=== PATIENT | female | born 1955 | race Hispanic/Latino ===

== ENCOUNTER 2020-04-09 08:09 | Emergency (ER) | payer OTHER ==
[2020-04-09 08:43] LABS: Absolute Lymphocytes (CBC) 1.8 K/uL (0.7-4.9); Basophils % 0.6 % (0-1.3); Hematocrit 37.2 % (36.0-45.0); Lymphocytes % 16.4 % (15.3-44.8); MPV 7.5 fL (7.6-11.3); RBC Red Blood Cell Count 4.13 M/uL (3.86-4.86)
[2020-04-09] MEDS ORDERED: NA CHLORIDE 0.9% 0 ML ONE (08:50)
[2020-04-09] MEDS ORDERED: MECLIZINE HCL 12.5 MG TAB ONE (08:50)
[2020-04-09] MEDS ORDERED: NA CHLORIDE 0.9% 500 ML ONE (08:52)
[2020-04-09 09:04] LABS: Bicarbonate 28 mmol/L (21-32); Glucose Level 102 mg/dL (74-106); Potassium 3.9 mmol/L (3.5-5.1); Sodium Level 138 mmol/L (136-145)
[2020-04-09 09:05] LABS: BUN Blood Urea Nitrogen 24 mg/dL (7-18); Troponin (Emerg Dept Use Only) < 0.02 ng/mL (0.0-0.045)
--- NOTE | 2020-04-09 09:56 | RAD REPORT ---
EXAM DESCRIPTION: CT - Head Brain Wo Cont - 04/09/2020 9:38 am CLINICAL HISTORY: DIZZINESS COMPARISON: Head angio dated 04/09/2020 TECHNIQUE: Axial 5 mm thick images of the head were obtained without IV contrast. All CT scans are performed using dose optimization technique as appropriate and may include automated exposure control or mA/KV adjustment according to patient size. FINDINGS: No intracranial hemorrhage, mass, edema or shift of mid-line structures. No cortical edema or sulcal effacement. Mild atrophy changes are present. Ventricles are in proportion to volume loss. No abnormal extra-axial fluid collections. Chronic ischemic changes are seen in the cerebral white m atter. Mastoid air cells and visualized portions of the paranasal sinuses are clear. No acute bony findings. IMPRESSION: Atrophy and chronic ischemic changes are present. No hemorrhage or acute cortical infarc tion identifiable.
--- NOTE | 2020-04-09 09:58 | RAD REPORT ---
EXAM DESCRIPTION: CT - Head angio - 04/09/2020 9:39 am CLINICAL HISTORY: DIZZINESS TECHNIQUE: During dynamic enhancement using nonionic IV contrast, axial 1 millimeter thick images of the head were obtained. Sagittal and axial reconstruction images were generated using MIP technique and reviewed. All CT scans are performed using dose optimization technique as appropriate and may include automated exposure control or mA/KV adjustment according to patient size. COMPARISON: CT head same date FINDINGS: No aneurysm or vascular malformation identified. Major venous sinuses are patent. No stenosis, named branch occlusion, vasculitis or other significant vascular finding identifiable. IMPRESSION: Negative CT angio head examination for acute or significant finding.
--- NOTE | 2020-04-09 10:00 | RAD REPORT ---
EXAM DESCRIPTION: CT - Neck Angio - 04/09/2020 9:39 am CLINICAL HISTORY: dizziness TECHNIQUE: During dynamic enhancement using nonionic IV contrast, axial 2 mm thick images of the nec k were obtained. Sagittal and axial reconstruction images were generated using MIP technique and revi ewed. All CT scans are performed using dose optimization technique as appropriate and may include automated exposure control or mA/KV adjustment according to patient size. COMPARISON: CT head same date, CT angio head same date FINDINGS: No aneurysm or vascular malformation identified. No carotid or vertebral dissection. No aortic arch or great vessel origin abnormality seen. Vertebral artery origins unremarkable as well . No vasculitis changes. Atherosclerotic calcifications are present in the bilateral bulb and proxima l ICA regions. Luminal narrowing does not exceed 20%. No dissection or intimal flap. No focal abnorma lity of either vertebral artery. Basilar artery is normal. IMPRESSION: Bilateral carotid bulb and proximal ICA atherosclerotic calcifications with stenosis no t exceeding 20%. No dissection or acute cervical carotid or vertebral finding.
--- NOTE | 2020-04-09 10:14 | EDPHYS ---
Physician Documentation [facility] Name: Syeda Loredo Age: 64 yrs Sex: Female : 1955 Arrival Date: 04/09/2020 Time: 08:11 Bed 2 Private MD: Megan Matthewsh ED Physician Samuel Dunaway HPI: 04/09 10:01 This 64 yrs old Female presents to ER via Ambulatory with complaints of rn Dizziness. 10:01 The patient complains of pain to the top of head. The patient describes the headache as rn aching, intermittent. Onset: The symptoms/episode began/occurred 1 week(s) ago. The patient presents with dizziness, lightheadedness, feeling off balance. Onset: The symptoms/episode began/occurred 1 week(s) ago. Modifying factors: The symptoms are alleviated by. 10:02 Severity of symptoms: At their worst the symptoms were mild in the emergency department rn the symptoms have improved. The patient has not experienced similar symptoms in the past. Reports headache and dizziness for 1 week. Reports put on thyroid and cholesterol medication a few weeks ago, not sure if medication problem. + dizziness that is made worse with movement and change in position, when began 1 week ago, felt unsteady with difficulty walking, now slowly improving but not gone. No hx of CVA. No other neurological complaint. NO vision or speech changes. . Historical: - Allergies: 08:22 No Known Allergies; iw - Home Meds: 08:22 atorvastatin 40 mg oral tab 1 tab once daily [Active]; levothyroxine 50 mcg tab 1 tab iw once daily [Active]; lisinopril-hydrochlorothiazide 20-25 mg oral tab 1 tab once daily [Active]; - PMHx: 08:22 Hypertension; Hypothyroidism; Hyperlipidemia; iw - PSHx: 08:22 None; iw - Immunization history:: Adult Immunizations. - Family history:: not pertinent. - Social history:: Smoking status: Patient denies any tobacco usage or history of. - Hospitalizations: : No recent hospitalization is reported. ROS: 10:02 Constitutional: Negative for fever, chills, and weight loss, Eyes: Negative for injury, rn pain, redness, and discharge, Neck: Negative for injury, pain, and swelling, Cardiovascular: Negative for chest pain, palpitations, and edema, Respiratory: Negative for shortness of breath, cough, wheezing, and pleuritic chest pain, Abdomen/GI: Negative for abdominal pain, nausea, vomiting, diarrhea, and constipation, MS/Extremity: Negative for injury and deformity, Skin: Negative for injury, rash, and discoloration, Neuro: Negative for weakness, numbness, tingling, and seizure. Exam: 10:02 Constitutional: This is a well developed, well nourished patient who is awake, alert, rn and in no acute distress. Head/Face: Normocephalic, atraumatic. Eyes: Pupils equal round and reactive to light, extra-ocular motions intact. Lids and lashes normal. Conjunctiva and sclera are non-icteric and not injected. Cornea within normal limits. Periorbital areas with no swelling, redness, or edema. Cardiovascular: Regular rate and rhythm with a normal S1 and S2. No gallops, murmurs, or rubs. Normal PMI, no JVD. No pulse deficits. Respiratory: Lungs have equal breath sounds bilaterally, clear to auscultation and percussion. No rales, rhonchi or wheezes noted. No increased work of breathing, no retractions or nasal flaring. Abdomen/GI: Soft, non-tender, with normal bowel sounds. No distension or tympany. No guarding or rebound. No evidence of tenderness throughout. Skin: Warm, dry with normal turgor. Normal color with no rashes, no lesions, and no evidence of cellulitis. MS/ Extremity: Pulses equal, no cyanosis. Neurovascular intact. Full, normal range of motion. Equal circumference. Neuro: Awake and alert, GCS 15, oriented to person, place, time, and situation. Cranial nerves II-XII grossly intact. Motor strength 5/5 in all extremities. Sensory grossly intact. Cerebellar exam normal. Normal gait. Vital Signs: 08:30 BP 116 / 71; Pulse 73; Resp 16; Temp 97.4; Pulse Ox 99% on R/A; Weight 84.37 kg; Height iw 5 ft. 2 in. (157.48 cm); Pain 0/10; 10:31 BP 102 / 57; Pulse 62; Resp 18; Temp 97.5(TE); Pulse Ox 99% on R/A; mh5 08:30 Body Mass Index 34.02 (84.37 kg, 157.48 cm) iw MDM: 08:17 Patient medically screened. rn 10:02 ED course: Pt states pcp would not make medication change without w/u here in ER so rn sent in for CT head. . 10:10 Differential diagnosis: CVA, generalized weakness, hypovolemia, idiopathic dizziness, rn TIA, vertigo. Data reviewed: vital signs, nurses notes, lab test result(s), EKG, radiologic studies, CT scan, and as a result, I will discharge patient. Counseling: I had a detailed discussion with the patient and/or guardian regarding: the historical points, exam findings, and any diagnostic results supporting the discharge/admit diagnosis, lab results, radiology results, the need for outpatient follow up, to return to the emergency department if symptoms worsen or persist or if there are any questions or concerns that arise at home. ED course: Pt feels better, CT head and neck angio no acute findings, mild plaque in carotids, will dc home with meclizine for vertigo along with pcp f/u if needs to make medication changes. . 04/09 08:27 Order name: CBC with Diff; Complete Time: 09:56 rn 04/09 08:27 Order name: Basic Metabolic Panel; Complete Time: 09:56 rn 04/09 08:27 Order name: CT Head Brain wo Cont; Complete Time: 10:05 rn 04/09 08:27 Order name: TSH; Complete Time: 09:56 rn 04/09 08:27 Order name: T4 Free; Complete Time: 09:56 rn 04/09 08:27 Order name: Troponin (emerg Dept Use Only); Complete Time: 09:56 rn 04/09 08:27 Order name: CT Head Angio; Complete Time: 10:05 rn 04/09 08:27 Order name: CT Neck Angio; Complete Time: 10:05 rn 04/09 08:27 Order name: IV Start; Complete Time: 08:38 rn 04/09 08:27 Order name: EKG; Complete Time: 08:28 rn 04/09 08:27 Order name: EKG - Nurse/Tech; Complete Time: 08:47 rn Administered Medications: 08:40 Drug: Meclizine 50 mg Route: PO; aa5 10:30 Follow up: Response: No adverse reaction; Marked relief of symptoms iw 08:40 Drug: NS 0.9% 500 ml Route: IV; Rate: bolus; Site: right antecubital; aa5 09:40 Follow up: IV Status: Completed infusion iw Disposition: 04/09/20 10:13 Discharged to Home. Impression: vertigo. - Condition is Stable. - Discharge Instructions: Vertigo. - Prescriptions for Meclizine 25 mg Oral Tablet - take 1 tablet by ORAL route every 8 hours As needed; 30 tablet. - Medication Reconciliation Form, Thank You Letter, Antibiotic Education, Prescription Opioid Use form. - Follow up: Pieter Cook MD; When: As needed; Reason: Recheck today's complaints, Re-evaluation by your physician. - Problem is an ongoing problem. - Symptoms have improved. Signatures: Dispatcher [employer] EDRosa Isela Vega RN RN iw Samuel Dunaway MD MD rn Calderon, Audri, RN RN aa5 Corrections: (The following items were deleted from the chart) 10:38 10:13 04/09/2020 10:13 Discharged to Home. Impression: vertigo. Condition is Stable. iw Forms are Medication Reconciliation Form, Thank You Letter, Antibiotic Education, Prescription Opioid Use. Follow up: Pieter Cook; When: As needed; Reason: Recheck today's complaints, Re-evaluation by your physician. Problem is an ongoing problem. Symptoms have improved. rn
--- NOTE | 2020-04-09 10:14 | ER ---
Nurse's Notes [facility] Name: Syeda Loredo Age: 64 yrs Sex: Female : 1955 Arrival Date: 04/09/2020 Time: 08:11 Bed 2 Private MD: Parth Matthews Diagnosis: vertigo Presentation: 04/09 08:19 Chief complaint: Patient states: c/o dizziness, feeling off balance for a week, Dr. umer Matthews wanted her evaluated in ER, started thyroid and cholesterol medicine a month ago. Coronavirus screen: At this time, the client does not indicate any symptoms associated with coronavirus-19. Ebola Screen: Patient negative for fever greater than or equal to 101.5 degrees Fahrenheit, and additional compatible Ebola Virus Disease symptoms Patient denies exposure to infectious person. Patient denies travel to an Ebola-affected area in the 21 days before illness onset. No symptoms or risks identified at this time. Initial Sepsis Screen: Does the patient meet any 2 criteria? No. Patient's initial sepsis screen is negative. Does the patient have a suspected source of infection? No. Patient's initial sepsis screen is negative. Risk Assessment: Do you want to hurt yourself or someone else? Patient reports no desire to harm self or others. Onset of symptoms was April 02, 2020. 08:19 Method Of Arrival: Ambulatory iw 08:19 Acuity: BASILIA 3 iw Historical: - Allergies: 08:22 No Known Allergies; iw - Home Meds: 08:22 atorvastatin 40 mg oral tab 1 tab once daily [Active]; levothyroxine 50 mcg tab 1 tab iw once daily [Active]; lisinopril-hydrochlorothiazide 20-25 mg oral tab 1 tab once daily [Active]; - PMHx: 08:22 Hypertension; Hypothyroidism; Hyperlipidemia; iw - PSHx: 08:22 None; iw - Immunization history:: Adult Immunizations. - Family history:: not pertinent. - Social history:: Smoking status: Patient denies any tobacco usage or history of. - Hospitalizations: : No recent hospitalization is reported. Screenin:35 Abuse screen: Denies threats or abuse. Nutritional screening: No deficits noted. aa5 Tuberculosis screening: No symptoms or risk factors identified. Fall Risk IV access (20 points). Total Duong Fall Scale indicates No Risk (0-24 pts). Assessment: 08:30 General: Appears comfortable, Behavior is calm, cooperative. Pain: Denies pain. Neuro: aa5 Level of Consciousness is awake, alert, obeys commands, Oriented to person, place, time, situation, Aircraft Maintenance Technician are equal bilaterally Moves all extremities. Speech is normal, Facial symmetry appears normal, Reports Dizziness with walking . Cardiovascular: Heart tones S1 S2 present Rhythm is regular. Respiratory: Airway is patent Respiratory effort is even, unlabored, Respiratory pattern is regular, symmetrical. GI: Abdomen is obese, Patient currently denies nausea, vomiting. : No signs and/or symptoms were reported regarding the genitourinary system. EENT: No signs and/or symptoms were reported regarding the EENT system. Derm: Skin is pink, warm \T\ dry. Musculoskeletal: Range of motion: intact in all extremities. 09:28 Reassessment: Pt to CT via stretcher . aa5 09:28 Reassessment: Patient is alert, oriented x 3, equal unlabored respirations, skin aa5 warm/dry/pink. Vital Signs: 08:30 BP 116 / 71; Pulse 73; Resp 16; Temp 97.4; Pulse Ox 99% on R/A; Weight 84.37 kg; Height iw 5 ft. 2 in. (157.48 cm); Pain 0/10; 10:31 BP 102 / 57; Pulse 62; Resp 18; Temp 97.5(TE); Pulse Ox 99% on R/A; mh5 08:30 Body Mass Index 34.02 (84.37 kg, 157.48 cm) iw ED Course: 08:11 Patient arrived in ED. ag5 08:11 Parth Matthews DO is Private Physician. ag5 08:15 Shena Boucher, RN is Primary Nurse. aa5 08:17 Samuel Dunaway MD is Attending Physician. rn 08:21 Triage completed. iw 08:23 Arm band placed on. iw 08:30 Patient has correct armband on for positive identification. Placed in gown. Bed in low aa5 position. Call light in reach. Side rails up X2. Pulse ox on. NIBP on. 08:35 Initial lab(s) drawn, by me, sent to lab. Inserted saline lock: 20 gauge in right aa5 antecubital area, using aseptic technique. Blood collected. 08:54 athletic monitor on. mh5 08:54 EKG done, by ED staff, reviewed by Samuel Dunaway MD. 5 08:55 Adult w/ patient. mh5 09:38 CT Head Brain wo Cont In Process Unspecified. EDMS 09:39 CT Head Angio In Process Unspecified. EDMS 09:39 CT Neck Angio In Process Unspecified. EDMS 10:13 Pietre Cook MD is Referral Physician. rn 10:37 No provider procedures requiring assistance completed. IV discontinued, intact, iw bleeding controlled, No redness/swelling at site. Pressure dressing applied. Administered Medications: 08:40 Drug: Meclizine 50 mg Route: PO; aa5 10:30 Follow up: Response: No adverse reaction; Marked relief of symptoms iw 08:40 Drug: NS 0.9% 500 ml Route: IV; Rate: bolus; Site: right antecubital; aa5 09:40 Follow up: IV Status: Completed infusion iw Outcome: 10:13 Discharge ordered by MD. rn 10:37 Discharged to home via wheelchair, with family. iw 10:37 Condition: good 10:37 Discharge instructions given to patient, family, Instructed on discharge instructions, follow up and referral plans. medication usage, Demonstrated understanding of instructions, follow-up care, medications, Prescriptions given X 1. 10:38 Patient left the ED. iw Signatures: Dispatcher [employer] Rosa Isela Appiah, Samuel Aranda RN, MD MD rn Calderon, Audri, RN RN aa5 Martinez, Maria Salome Cervantes Josep
[2020-04-09 10:43] VITALS: BP 116/71; TEMP 97.4; O2SAT 99
--- NOTE | 2020-04-09 11:37 | EKG ---
Test Date: 2020-04-09 Test Time: 08:51:10 Chemical Dependency Professional: JAXON MEASUREMENT RESULTS: Intervals: Rate: 61 [place]: 178 QRSD: 78 QT: 414 QTc: 416 [place]: P: 66 [place]: 178 QRS: -6 T: 48 INTERPRETIVE STATEMENTS: Normal sinus rhythm Low voltage QRS Nonspecific T wave abnormality Abnormal ECG Compared to ECG 01/18/2007 06:25:50 Low QRS voltage now present Possible ischemia no longer present Prolonged QT interval no longer present T-wave abnormality still present Electronically Signed On 04-09-20 11:37:05 CDT by Roberto Carlos Tai
--- OUTSIDE RECORDS SUMMARY | 2020-04-14 18:46 | XMS REPORT ---
:1955 Author Organization [facility] Address [address] [place] [place] [address] Care Team Providers Name Role Phone Parth Matthews Unavailable [phone] PROBLEMS Type Condition ICD9-CM [id number]-LE Onset Condition SNOMED Code Notes Code Code Dates Status Problem Body mass index Z68.37 Active 060847591 (BMI) 37.0-37.9, adult Problem Hypothyroidism, E03.9 Active 21145495 unspecified type Problem Acquired E03.9 Active 677170470 hypothyroidism Problem Morbid (severe) E66.01 Active 298575788 obesity due to excess calories Problem Mixed E78.2 Active 797315867 hyperlipidemia Problem Essential I10 Active 72567065 hypertension Problem Adult BMI Z68.37 Active 709670238 37.0-37.9 kg/sq m ALLERGIES No Known Allergies ENCOUNTERS from 1955 to 2020-04-06 Encounter Location Date Provider Diagnosis [facility] [address], [place] [address] IMMUNIZATIONS No Information SOCIAL HISTORY Tobacco Use: Social History Observation Description Date Details (start date - stop date) Never Smoker Sex Assigned At : Social History Observation Description Sex Assigned At Unknown Alcohol Screen Question Answer Notes Did you have a drink containing alcohol in the past year? No Points 0 Interpretation Negative Tobacco Use/Smoking Question Answer Notes Are you a never smoker REASON FOR REFERRAL No Information VITAL SIGNS No information MEDICATIONS Medication SIG (Take, Route, Start Date End Date Status Frequency, Duration) Atorvastatin Calcium 40 MG 1 tablet Orally Once a day Active for 90 days Lisinopril-Hydrochlorothiazide 1 tablet Orally Once a day Active 20-25 MG for 90 days Levothyroxine Sodium 50 MCG 1 tablet in the morning on Active an empty stomach Orally Once a day for 90 days PROCEDURES No Information RESULTS No Results REASON FOR VISIT dizzyness, to ED MEDICAL (GENERAL) HISTORY Type Description Date Medical History hypertension, benign Medical History hyperlipidemia Surgical History No Surgical history information Goals Section No Information Health Concerns No Information MEDICAL EQUIPMENT No Information MENTAL STATUS No Information FUNCTIONAL STATUS No Information ASSESSMENTS No Information PLAN OF TREATMENT Next Appt Details Provider Name:Parth Matthews 2020-04-21 0 9:45:00 AM, [address], [place], [address], Provider Name:Parth Matthews 2020-04-28 0 9:30:00 AM, [address], [place], [address], Insurance Providers Payer Name Payer Payer Insured Patient Coverage Coverage End Address Phone Name Relationship to Start Date [place] e Insured Yours [place] [phone] Sharon Loredo self 2020 [id number] [place] Replace [id number]
--- OUTSIDE RECORDS SUMMARY | 2020-04-14 18:46 | XMS REPORT ---
:1955 Author Organization [employer] Care Team Providers Name Role Phone MatthewsParth tinajero Provider Role Unavailable Allergies, Adverse Reactions, Alerts Substance Reaction Event Type N.K.D.A. Info Not Available Non Drug Allergy Problems Problem Type Condition Code Onset Dates Condition Statu s Assessment Asymptomatic menopausal state Z78.0 Active Assessment Medicare annual wellness visit, Z00.00 Active subsequent Assessment Encounter for screening mammogram Z12.31 Active for malignant neoplasm of breast Problem Hypothyroidism, unspecified type E03.9 Active Problem Adult BMI 37.0-37.9 kg/sq m Z68.37 Active Problem Acquired hypothyroidism E03.9 Acti ve Problem Morbid (severe) obesity due to E66.01 Active excess calories Problem Body mass index (BMI) 37.0-37.9, Z68.37 Active adult Problem Essential hypertension I10 Activ e Problem Mixed hyperlipidemia E78.2 Active Medications Medication Code Code Instructions Start End Status Dosage System Date Date Lisinopril-Hydroc ND 71494239050 20-25 MG Orally Ac tive 1 tablet hlorothiazide Once a day Atorvastatin ND 02100342364 40 MG Orally Active 1 tablet Calcium Once a day Levothyroxine ND 41438027485 50 MCG Orally Active 1 tablet Sodium Once a day in the morning on an empty stomach Results No Known Results Summary Purpose [employer] Submission
--- OUTSIDE RECORDS SUMMARY | 2020-04-14 18:46 | XMS REPORT ---
:1955 Author Organization [employer] Care Team Providers Name Role Phone Byron Parth Provider Role Unavailable Allergies, Adverse Reactions, Alerts Substance Reaction Event Type N.K.D.A. Info Not Available Non Drug Allergy Problems Problem Type Condition Code Onset Dates Condition Statu s Assessment Mixed hyperlipidemia E78.2 Active Assessment Essential hypertension I10 Activ e Problem Hypothyroidism, unspecified type E03.9 Active Problem Adult BMI 37.0-37.9 kg/sq m Z68.37 Active Problem Acquired hypothyroidism E03.9 Acti ve Problem Morbid (severe) obesity due to E66.01 Active excess calories Problem Body mass index (BMI) 37.0-37.9, Z68.37 Active adult Problem Essential hypertension I10 Activ e Problem Mixed hyperlipidemia E78.2 Active Assessment Prediabetes R73.03 Active Assessment Adult BMI 37.0-37.9 kg/sq m Z68.37 Active Assessment Morbid (severe) obesity due to E66.01 Active excess calories Assessment Noncompliance w/medication treatment Z91.14 Active due to intermit use of medication Assessment Acquired hypothyroidism E03.9 Acti ve Medications Medication Code Code Instructions Start End Status Dosage System Date Date Atorvastatin [facility] 16660171255 40 MG Orally Active 1 tablet Calcium Once a day Levothyroxine [facility] 04360548507 50 MCG Orally Active 1 tablet Sodium Once a day in the morning on an empty stomach Lisinopril-Hydroc [facility] 29293278125 20-25 MG Orally Ac tive 1 tablet hlorothiazide Once a day Results No Known Results Summary Purpose [employer]Works Submission
--- OUTSIDE RECORDS SUMMARY | 2020-04-14 18:46 | XMS REPORT | Continuity of Care Document ---
:1955 Author Organization [facility] t Address [address] [place] [address] Care Team Providers Name Role Phone Unavailable Unavailable Unavailable Problems This patient has no known problems. Allergies, Adverse Reactions, Alerts This patient has no known allergies or adverse reactions. Medications Ordered Filled Start Stop Current Ordering Indication Dosage Frequency Signature Comments Components Source Medication Medication Date Date Medication? Clinician (SIG) Name Name Levothyroxi Levothyroxi Yes Parth [address] [facility] ne Sodium ne Sodium 6-02 Matthews in the [place] - 00:00: morning on 00 an empty l stomach Outpati ent Clinics Lisinopril- Lisinopril- Yes Parth [address] [facility] Hydrochloro Hydrochloro [facility] Atorvastati Atorvastati Yes Parth [address] [facility] n Calcium n Calcium Matthews [place] [facility] Procedures This patient has no known procedures. Encounters Start End Encounter Admission Attending Care Care Encounter Source Date/Time Date/Time Type Type Clinicians Facility Department ID 2020-04-06 2020-04-06 Outpatient [facility] [id number] [facility] 2020-03-18 2020-03-18 Outpatient Jw Moss [id number] [facility] 08:20:00 08:20:[address] [employer] [facility] 2020-03-16 2020-03-16 Outpatient Jw Moss [id number] [facility] 15:15:00 15:15:00 [place] [employer] [facility] Outpati ent Clinics 2020-02-27 2020-02-27 [place] [address] [facility] 10:45:00 10:45:00 [place] [employer] [facility] Outpat[facility] ent Clinics 2020-02-27 2020-02-27 [facility] [address] 10:00:00 10:00:00 t [place] [employer] [facility] Outpat[facility] ent Clinics 2019-12-09 2019-12-09 [facility] [id number] [facility] 11:30:00 11:30:00 t [place] [employer] [facility] Medicine Outpati ent Clinics 2019-12-06 2019-12-06 [facility] [id number] [facility] 22:04:00 22:04:00 t [place] [employer] [facility] Medicine Outpati ent Clinics 2019-09-12 2019-09-12 [facility] [id number] [facility] [address] 08:36:00 08:36:00 t [place] [employer] [facility] Medicine Outpati ent Clinics 2019-09-10 2019-09-10 [facility] [id number] 11:00:00 11:00:00 t [employer] [facility] Outpat[facility] ent Clinics Results This patient has no known results.
--- OUTSIDE RECORDS SUMMARY | 2020-04-14 18:46 | XMS REPORT ---
:1955 Author Organization [employer] Care Team Providers Name Role Phone Byron [facility] Provider Role Unavailable Allergies No Known Allergies Problems Problem Type Condition Code Onset Dates Condition Statu s Problem Hypothyroidism, unspecified type E03.9 Active Problem Adult BMI 37.0-37.9 kg/sq m Z68.37 Active Problem Acquired hypothyroidism E03.9 Acti ve Problem Morbid (severe) obesity due to E66.01 Active excess calories Problem Body mass index (BMI) 37.0-37.9, Z68.37 Active adult Problem Essential hypertension I10 Activ e Problem Mixed hyperlipidemia E78.2 Active Medications No Known Medications Results No Known Results Summary Purpose eClinicalWorks Submission
--- OUTSIDE RECORDS SUMMARY | 2020-04-14 18:46 | XMS REPORT ---
:1955 Author Organization [employer] Care Team Providers Name Role Phone Byron [facility] Provider Role Unavailable Allergies No Known Allergies [...]
== END 2020-04-09 10:38 | disposition home or self-care (01) ==
LOC: ER 08:09
DX: R42 Dizziness and giddiness (principal); I10 Essential (primary) hypertension; E03.9 Hypothyroidism, unspecified; E78.5 Hyperlipidemia, unspecified
CPT/HCPCS: 93005; 85025; 80048; 36415; 84443; 84484; 84439; 70450; 70496; 70498; 96360; 99284; Q9967; J7040; J7030

== ENCOUNTER 2020-07-12 13:39 | Emergency (ER) | payer OTHER ==
--- OUTSIDE RECORDS SUMMARY | 2020-07-12 13:44 | XMS REPORT ---
:1955 Author Organization [facility] Address [address] [place], [address] [place] [address] Care Team Providers Name Role Phone Parth Matthews Unavailable [phone] PROBLEMS Type Condition ICD9-CM USH60-GK Onset Condition SNOMED Code Notes Code Code Dates Status Problem Body mass index Z68.37 Active 224839687 (BMI) 37.0-37.9, adult Problem Morbid (severe) E66.01 Active 380112507 obesity due to excess calories Problem Acquired E03.9 Active 678524543 hypothyroidism Problem Bilateral carotid I65.23 Active 59087449381381 7 artery stenosis Problem Mixed E78.2 Active 196900500 hyperlipidemia Problem Essential I10 Active 01067281 hypertension Problem Adult BMI Z68.37 Active 109791067 37.0-37.9 kg/sq m Problem Hypothyroidism, E03.9 Active 18982675 unspecified type ALLERGIES No Known Allergies ENCOUNTERS from 1955 to 2020-04-28 Encounter Location Date Provider Diagnosis [facility] [place] [address] [place] Apr, Parth Matthews [address] [place] ; [place] [address] hyperlipidemia E78.2 ; Acquired hypoth yroidism E03.9 ; Morbid (severe) obesity due to excess calories E66.01 ; Adult BMI 37.0-37.9 k g/sq m Z68.37 ; Predia betes R73.03 ; Noncom pliance w/medication tr eatment due to intermit use of medication Z91. 14 and Bilateral carot id artery stenosis I65.23 IMMUNIZATIONS Vaccine Route Administration Date Status FluAD IM Intramuscular Apr 21, 2020 Administered SOCIAL HISTORY Tobacco Use: Social History Observation [...] REASON FOR REFERRAL No Information VITAL SIGNS Height 62 in Apr, Weight 193.7 lbs Apr, Temperature 97.3 degrees Fahrenheit Apr, BMI 35.42 kg/m2 Apr, Oximetry 98 % Apr, Respiratory Rate 17 /min Apr, Blood pressure systolic 118 mm Hg Apr, Blood pressure diastolic 57 mm Hg Apr, MEDICATIONS Medication SIG (Take, Route, Start Date End Date Status Frequency, Duration) Meclizine HCl 25 MG 1 tablet as needed Orally Active Every 8 hours Levothyroxine Sodium 75 MCG 1 tablet in the morning on Active an empty stomach Orally Once a day for 90 days Lisinopril-Hydrochlorothiazide 1 tablet Orally Once a day Active 20-25 MG for 90 days Atorvastatin Calcium 80 MG 1 tablet Orally Once a day Active for 90 days PROCEDURES No Information RESULTS No Results REASON FOR VISIT 2 [facility] lab f/u. In office. MEDICAL (GENERAL) HISTORY Type Description Date Medical History hypertension, benign Medical History hyperlipidemia Surgical History No Surgical history information Goals Section No Information Health Concerns No Information MEDICAL EQUIPMENT No Information MENTAL STATUS No Information FUNCTIONAL STATUS No Information ASSESSMENTS Encounter Date Diagnosis Notes Apr, Essential hypertension (ICD-10 - I10) Apr, Prediabetes (ICD-10 - R73.03) Apr, Adult BMI 37.0-37.9 kg/sq m (ICD-10 - Z6 8.37) Apr, Bilateral carotid artery stenosis (ICD-1 0 - I65.23) Apr, Mixed hyperlipidemia (ICD-10 - E78.2) Apr, Noncompliance w/medication treatment due to intermit use of medication (ICD-10 - Z91.14) Apr, Morbid (severe) obesity due to excess ca lories (ICD-10 - E66.01) Apr, Acquired hypothyroidism (ICD-10 - E03.9) PLAN OF TREATMENT Medication Medication Name Sig Start Date Stop Date Levothyroxine Sodium 75 MCG 1 tablet in the morning on an empty stomach Orally Once a day for 90 days Lisinopril-Hydrochlorothiazide 1 tablet Orally Once a day 20-25 MG for 90 days Atorvastatin Calcium 80 MG 1 tablet Orally Once a day for 90 days Treatment Notes Assessment Notes Clinical Notes Essential hypertension Continue current. Stable. Refill given. DASH Diet discussed. Instructed to measure BP at home and bring in log to f/u appt. Instructions and logs given. Education given. HTN EducationThis is a condition that puts at risk for heart attack, stroke, and kidney disease.Lifestyle modification, low fat/low salt diet, exercise, low alcohol intake and medication is utilized to help control your BP. Untreated HTN increases the strain on the heart and arteries, eventually causing organ damage.Normal BP is less than 140/90. High BP is greater than 140/90. If your BP is not controlled, call your doctor.Medication may need to be adjusted and/or added.Compliance with medication is vital. If you have chest pain, shortness of breath, severe nausea/vomiting, fatigue, and other symptoms, you will need to contact your doctor or go to the ER immediately to address. Mixed hyperlipidemia INCREASED Lipitor 80 mg and titrate as tolerated. Strongly encouraged on being compliant. Patient tolerated 20 mg therefore will increase side effect plan discussed extensively. Due to LDL above 190 will start statin. Hyperlipidemia Education: Hyperlipidemia refers to increased levels of lipids(fats) in the blood, including cholesterol and triglycerides. This can significantly increase your risk of developing coronary artery disease and peripheral artery disease. This can cause chest pain, heart attack, stroke, and fatigue. Treatment is recommended to decrease your risk. Treatment includes: lifestyle modification, low salt/low fat diet, exercise, tobacco cessation, low alcohol intake and sometimes medication. Blood tests (TC,TG, HDL, LDL) are utilized to determine treatment regimens. TC(Total cholesterol) should be below 200. TG(Total Triglycerides) should be below 150. HDL(Good cholesterol) should be above 40. LDL(Bad Cholesterol) should be below 130(if you have one risk factor) or less than 100( if you have more than one risk factor or have DM/CAD/PVD). Compliance with medication and treatment is vital. If you have questions, talk to your doctor. Acquired hypothyroidism Discussed differential diagnosis with patient. Education given. Encouraged on being compliant. Patient reluctant initially to start medication. Increase levothyroxine 75 mcg and titrate as tolerated. TSH goal to be between 1 and 3. Concern for other triggers such as cholesterol. Will monitor closely. Education given., Hypothyroidism Education: This a condition in which the thyroid gland does not produce enough thyroid hormone for the body. The hormones are important in regulating the body''s use of storing and controlling energy. Symptoms are widely varied and often mimick the body''s normal changes of life. Symptoms may include: fatigue, shortness of breath with exertion, dry skin, hair loss, constipation, depressed feeling, weight gain and temperature intolerance. A blood test is used to determine the thyroid levels. Treatment involves the use of medication in order to balance the TSH and T4 hormone levels. Treatment is indefinite and often lifelong. Your hormone levels will need to be checked periodically to insure that the levels are balanced. Compliance with medication is vital. Overtreated hormone levels can lead to complications. Contact your doctor if you have any abnormal symptoms. Morbid (severe) obesity due to Counseling given. Education tammy snow. excess calories Utilized the 5-A''s approach to increase patient motivation and behavioral change. ASK: Patient expressed desire/readiness to change and premission was obtained to discuss. ASSESS: BMI class discussed. In addition, patient''s barrier to weight loss and identified drivers and complications. ADVISE: Discussed benefits of modest weight loss and long-term strategy as well. Educated on risks and complications of obesity on health. Treatment options were discussed including but not limited to non-surgical (medications, gym, diet/exercise) and surgical options. AGREE: Realistic weight-loss goal discussed. Behavioral goals done. Patient agreed with treatment plan. ASSIST: Provided education and resources. Plan made to address drivers and barriers. Close follow-up arranged. START: Walking daily, reducing soda and increased hydration with water of at least 64 ounces. Prediabetes Diet-Controlled. Education given. Bilateral carotid artery stenosis Noted on CT. Asymptomatic . Education given. Treatment Notes Test Name Order Date Lipid Panel With LDL/HDL Ratio 2020-04-28 Thyroid Panel With TSH 2020-04-28 Hemoglobin A1c 2020-04-28 Comp. Metabolic Panel (14) (CMP) 2020-04-28 Next Appt Details 3 Months + AMW + Labs 1 week Reason: Provider Name:Parth Matthews, 2020-07-30 0 8:30:00 AM, [address], [place], [address], Provider Name:Parth Matthews, 2020-08-06 1 0:10:00 AM, [address], [address], [place], [address], Provider Name:Parth Matthews, 2020-08-06 1 0:30:00 AM, [address], [facility] [address], [place], [address], Insurance Providers Payer Name Payer Payer Insured Patient Coverage Coverage End Address Phone Name Relationship to Start Date [place] e Insured [employer] [phone] Sharon Loredo self [address] [facility] [id number] [place] Replace [id number]
--- OUTSIDE RECORDS SUMMARY | 2020-07-12 13:44 | XMS REPORT | Continuity of Care Document ---
:1955 Author Organization [facility] t Address [address] [place] [address] Care Team Providers Name Role Phone Unavailable [...] [facility] Atorvastati Atorvastati Yes Parth [address] [facility] n Calcium n Calcium Matthews [facility] Procedures This patient has no known procedures. Encounters Start End Encounter Admission Attending Care Care Encounter Source Date/Time Date/Time Type Type Clinicians Facility Department ID 2020-04-28 2020-04-28 Outpatient [facility] [id number] [facility] 2020-04-21 2020-04-21 Outpatient [facility] [id number] [facility] 2020-04-06 2020-04-06 Outpatient [facility] [id number] [facility] 2020-03-18 2020-03-18 [facility] [id number] [facility] 08:20:00 08:20:00 t [facility] Outpati ent Clinics 2020-03-16 2020-03-16 [facility] [id number] [facility] 15:15:00 15:15:00 t [facility] Outpati ent Clinics 2020-02-27 2020-02-27 [facility] [address] 10:45:00 10:45:00 t [facility] Outpati ent Clinics 2020-02-27 2020-02-27 [facility] [address] 10:00:00 10:00:00 t [facility] Outpati ent Clinics 2019-12-09 2019-12-09 [facility] [id number] [facility] 11:30:00 11:30:00 t [facility] Outpati ent Clinics 2019-12-06 2019-12-06 [facility] [id number] 22:04:00 22:04:00 t [facility] Outpati ent Clinics 2019-09-12 2019-09-12 [facility] [id number] 08:36:00 08:36:00 t [facility] Outpati ent Clinics 2019-09-10 2019-09-10 [facility] [id number] 11:00:00 11:00:00 t [facility] Outpati ent Clinics Results This patient has no known results.
--- OUTSIDE RECORDS SUMMARY | 2020-07-12 13:44 | XMS REPORT ---
:1955 Author Organization [facility] Address [address], [address] [place] [address] Care Team Providers Name Role Phone Parth Matthews Unavailable [phone] PROBLEMS Type Condition ICD9-CM DOM53-CL Onset Condition SNOMED Code Notes Code Code Dates Status Problem Body mass index Z68.37 Active 854966466 (BMI) 37.0-37.9, adult Problem Hypothyroidism, E03.9 Active 19455229 unspecified type Problem Acquired E03.9 Active 870026636 hypothyroidism Problem Morbid (severe) E66.01 Active 698345248 obesity due to excess calories Problem Mixed E78.2 Active 525880260 hyperlipidemia Problem Essential I10 Active 23953139 hypertension Problem Adult BMI Z68.37 Active 953933618 37.0-37.9 kg/sq m ALLERGIES No Known Allergies ENCOUNTERS from 1955 to 2020-04-21 Encounter Location Date Provider Diagnosis [facility] [address] Apr, [facility] Byron costa for influenza Family Medicine [address], [place] [address] IMMUNIZATIONS Vaccine Route Administration Date Status FluAD [...] Information RESULTS No Results REASON FOR VISIT flu shot MEDICAL (GENERAL) HISTORY Type Description Date Medical History hypertension, benign Medical History hyperlipidemia Surgical History No Surgical history information Goals Section No Information Health Concerns No Information MEDICAL EQUIPMENT No Information MENTAL STATUS No Information FUNCTIONAL STATUS No Information ASSESSMENTS Encounter Date Diagnosis Notes Apr, Need for influenza vaccination (ICD-10 - Z23) PLAN OF TREATMENT Next Appt Details prn Reason: Provider Name:[facility] Byron 2020-04-28 0 9:30:00 AM, [address] [place] [address] [address], [place], [address], Insurance Providers Payer Name Payer Payer Insured Patient Coverage Coverage End Address Phone Name Relationship to Start Date [place] e [facility]ured [facility] [phone] Sharon Loredo self [address] [id number] [place] Replace [phone]
[2020-07-12] MEDS ORDERED: PANTOPRAZOLE 40 MG INJ ONE (15:00)
[2020-07-12] MEDS ORDERED: FENTANYL CITR 100 MCG/2 ML ONE ×2 (15:00→18:03)
[2020-07-12] MEDS ORDERED: ONDANSETRON 4 MG/2 ML VIAL ONE (15:00)
[2020-07-12] MEDS ORDERED: WATER FOR INJ,STERILE 10 ML ONE (15:01)
[2020-07-12] MEDS ORDERED: NA CHLORIDE 0.9% 1,000 ML ONE ×2 (15:01→17:01)
[2020-07-12 15:37] LABS: Absolute Lymphocytes (CBC) 1.6 K/uL (0.7-4.9); Basophils % 0.1 % (0-1.3); Hematocrit 32.4 % (36.0-45.0); Lymphocytes % 8.1 % (15.3-44.8); MPV 7.6 fL (7.6-11.3); RBC Red Blood Cell Count 3.63 M/uL (3.86-4.86)
[2020-07-12 15:38] LABS: Protime INR 1.27
[2020-07-12] MEDS ORDERED: PIPER/TAZO/NS 3.375gm 3.375 GM/100 ML BAG ONE (15:55)
[2020-07-12 16:07] LABS: ALT/SGPT 157 U/L (12-78); AST/SGOT 300 U/L (15-37); Albumin 2.7 g/dL (3.4-5.0); Alkaline Phosphatase 356 U/L (45-117); BUN Blood Urea Nitrogen 112 mg/dL (7-18); Bilirubin Direct 0.5 mg/dL (0-0.2); Bilirubin Total 0.8 mg/dL (0.2-1.0); Glucose Level 63 mg/dL (74-106); Lipase 2151 U/L (73-393); Magnesium 3.3 mg/dL (1.8-2.4); NT PRO-BNP 1342 pg/mL (<125); Potassium 4.4 mmol/L (3.5-5.1); Protein, Total 8.4 g/dL (6.4-8.2); Sodium Level 124 mmol/L (136-145); Troponin (Emerg Dept Use Only) < 0.02 ng/mL (0.0-0.045)
[2020-07-12 16:10] LABS: Bicarbonate 10 mmol/L (21-32)
--- NOTE | 2020-07-12 16:46 | RAD REPORT ---
EXAM DESCRIPTION: CT - Chest Abd Pelvis Wo Todd - 07/12/2020 4:26 pm CLINICAL HISTORY: Chest and abdominal pain COMPARISON: None TECHNIQUE: Computed axial tomography of the chest, abdomen and pelvis was obtained. Oral contrast wa s given. IV contrast was not requested. All CT scans are performed using dose optimization technique as appropriate and may include automated exposure control or mA/KV adjustment according to patient size. FINDINGS: The evaluation of mediastinum, isrrael, vessels and solid organs is limited secondary to the lack of IV contrast administration Mild to moderate mediastinal and hilar lymphadenopathy A pleural effusion is not present. A pericardial effusion is not seen. Innumerable bilateral pulmonary nodules varying in size from a few millimeters to 23 millimeters Some of the images are degraded by patient motion artifact. 30 millimeter low-density left renal mass . The liver, spleen, pancreas, adrenals and right kidney grossly normal Diverticula stem from the colon without evidence of diverticulitis. Normal appendix 7.1 centimeter low-density right adnexal mass. 5.5 centimeter low-density left adnexal mass. No signi ficant free fluid. Lobulated uterus may indicate fibroids IMPRESSION: Innumerable bilateral pulmonary nodules probably metastases. Infectious and inflammator y processes are other considerations Mild to moderate mediastinal and hilar lymphadenopathy Bilateral adnexal masses. Ultrasound recommend 3 centimeter low-density renal mass probably a cyst. This also should be evaluated with ultrasound
--- NOTE | 2020-07-12 16:47 | RAD REPORT ---
EXAM DESCRIPTION: Sandrine Single View07/12/2020 3:02 pm CLINICAL HISTORY: Cough COMPARISON: none FINDINGS: Extensive bilateral pulmonary nodules. Heart is normal size IMPRESSION: Extensive bilateral pulmonary nodules probably metastases. Infectious inflammatory proc esses are other considerations
[2020-07-12 17:12] LABS: Arterial Blood Carboxyhemoglob 0.6 % (0-1.5); Blood Gas Oxyhemoglobin 94.8 % (94-97); Blood O2 Saturation 96.6 % (92-98.5)
--- NOTE | 2020-07-12 17:18 | ER ---
Nurse's Notes [facility] Name: Syeda Loredo Age: 64 yrs Sex: Female : 1955 Arrival Date: 07/12/2020 Time: 13:40 Bed 20 Private MD: Diagnosis: Acute kidney failure;Hypo-osmolality and hyponatremia;Acute pancreatitis;Abdominal tenderness;Hypoglycemia, unspecified;Elevated white blood cell count;Pelvic and perineal pain-bilateral pelvic masses7.1 and 4.2 cm;Abnormal findings on diagnostic imaging of other body structures-innumerable pulmonary nodules, moderate hilar and mediastinal lymphademopathy Presentation: 07/12 14:00 Chief complaint: Spouse and/or significant other states: lower abd pain, small amount sv of vaginal bleeding, low back pain started 07/03/20. Reports "It's kind of stopped now." BM today, "a little bit of diarrhea.". Coronavirus screen: Client denies travel out of the [place] in the last 14 days. At this time, the client does not indicate any symptoms associated with coronavirus-19. Ebola Screen: No symptoms or risks identified at this time. Risk Assessment: Do you want to hurt yourself or someone else? Patient reports no desire to harm self or others. Onset of symptoms was July 03, 2020. 14:00 Method Of Arrival: Wheelchair sv 14:00 Acuity: BASILIA 2 sv 14:02 Initial Sepsis Screen: Does the patient meet any 2 criteria? No. Patient's initial sv sepsis screen is negative. Does the patient have a suspected source of infection? No. Patient's initial sepsis screen is negative. Triage Assessment: 14:04 General: Appears in no apparent distress. uncomfortable, Behavior is calm, cooperative, sv appropriate for age. Pain: Complains of pain in suprapubic area, right lower quadrant and left lower quadrant. Neuro: Level of Consciousness is awake, alert, obeys commands, Oriented to person, place, time, situation. Respiratory: Respiratory effort is even, unlabored. Historical: - Allergies: 14:02 No Known Allergies; sv - PMHx: 14:02 Hyperlipidemia; Hypertension; Hypothyroidism; sv - PSHx: 14:02 None; sv - Immunization history:: Adult Immunizations up to date, Flu vaccine is up to date. - Social history:: Smoking status: Patient denies any tobacco usage or history of. - Family history:: pertinent for. Screenin:35 Abuse screen: Denies threats or abuse. Denies injuries from another. Nutritional ca1 screening: No deficits noted. Tuberculosis screening: No symptoms or risk factors identified. Fall Risk IV access (20 points). Assessment: 14:35 General: Appears in no apparent distress. uncomfortable, Behavior is calm, cooperative, ca1 appropriate for age. Pain: Complains of pain in suprapubic area, right upper quadrant, left upper quadrant, right lower quadrant and left lower quadrant Pain radiates to right mid back and right low back Pain currently is 4 out of 10 on a pain scale. Pain began 2-3 days ago. Is intermittent. Neuro: Level of Consciousness is awake, alert, obeys commands, Oriented to person, place, time, situation. Cardiovascular: Heart tones S1 S2 present Capillary refill < 3 seconds Patient's skin is warm and dry. Cardiovascular: Rhythm is sinus rhythm. Respiratory: Airway is patent Respiratory effort is even, unlabored, Respiratory pattern is regular, symmetrical, Breath sounds are clear bilaterally. GI: Abdomen is round non-distended, Bowel sounds present X 4 quads. Abd is soft X 4 quads Abdomen is tender to palpation X 4 quads. : Reports vaginal bleeding that is spotty, on Sunday. EENT: No signs and/or symptoms were reported regarding the EENT system. Derm: Skin is intact, is healthy with good turgor, Skin is pink, warm \\T\\ dry. Musculoskeletal: Circulation, motion, and sensation intact. Capillary refill < 3 seconds. 15:32 Reassessment: Patient appears in no apparent distress at this time. Patient and/or ca1 family updated on plan of care and expected duration. Pain level reassessed. Patient is alert, oriented x 3, equal unlabored respirations, skin warm/dry/pink. 16:15 Reassessment: Patient appears in no apparent distress at this time. Patient and/or ca1 family updated on plan of care and expected duration. Pain level reassessed. Patient is alert, oriented x 3, equal unlabored respirations, skin warm/dry/pink. 17:39 Reassessment: Patient appears in no apparent distress at this time. Patient and/or ca1 family updated on plan of care and expected duration. Pain level reassessed. Patient is alert, oriented x 3, equal unlabored respirations, skin warm/dry/pink. US at bedside. 18:11 Reassessment: Patient appears in no apparent distress at this time. Patient and/or ca1 family updated on plan of care and expected duration. Pain level reassessed. Patient is alert, oriented x 3, equal unlabored respirations, skin warm/dry/pink. 18:45 Reassessment: Gave report AUGUSTIN Bullock. ca1 Vital Signs: 14:02 BP 82 / 39; Pulse 86; Resp 16; Temp 97.4(TE); Pulse Ox 99% on R/A; Weight 72.57 kg; sv Height 5 ft. 2 in. (157.48 cm); 14:35 BP 102 / 51; Pulse 87; Resp 16 S; Pulse Ox 94% ; ca1 15:32 BP 97 / 44; Pulse 92; Resp 16 S; Pulse Ox 98% on R/A; ca1 16:15 BP 98 / 41; Pulse 92; Resp 22; Pulse Ox 95% on R/A; ca1 17:00 BP 100 / 48; Pulse 99; Resp 17 S; Pulse Ox 94% on R/A; ca1 17:43 BP 104 / 44; Pulse 105; Resp 20; Pulse Ox 93% on R/A; ca1 18:11 BP 94 / 42; Pulse 89; Resp 20; Pulse Ox 94% on R/A; ca1 18:44 BP 105 / 48; Pulse 103; Resp 20 S; Pulse Ox 95% on R/A; ca1 14:02 Body Mass Index 29.26 (72.57 kg, 157.48 cm) sv ED Course: 13:40 Patient arrived in ED. rg4 14:00 Arm band placed on. sv 14:02 Triage completed. sv 14:23 Corry Das, RN is Primary Nurse. ca1 14:23 Christian Dixon MD is Attending Physician. phillip 14:35 Patient has correct armband on for positive identification. Placed in gown. Bed in low ca1 position. Call light in reach. Side rails up X2. secured entrance monitor on. Pulse ox on. NIBP on. Warm blanket given. 14:54 Missed attempt(s): 20 gauge in right in left antecubital area. Bleeding controlled, em1 band aid applied, catheter tip intact. 15:02 XRAY Chest (1 view) In Process Unspecified. EDMS 15:22 Initial lab(s) drawn, by me, sent to lab. Inserted saline lock: 18 gauge in left EJ, ca1 using aseptic technique. ,using aseptic technique. by Dr. Dixon Blood collected. 16:27 Chest Abd Pelvis Wo Con In Process Unspecified. EDMS 17:[address] [facility], by dr dixon. bd 18:22 pt accepted in transfer to [facility] by dr jose matias, admin approval bd given by ceasar ceja rn video tape transferrer. 18:24 Forrester cath inserted, using sterile technique, 18 Fr., by me, balloon inflated, to ca1 gravity drainage, urine specimen collected. returned cloudy urine. Patient tolerated well. 18:28 US Abdomen Limited In Process Unspecified. EDMS 18:46 No provider procedures requiring assistance completed. Patient transferred, IV remains ca1 in place. Administered Medications: 15:24 Drug: ProTONIX 40 mg Route: IVP; Site: left jugular; ca1 16:00 Follow up: Response: No adverse reaction ca1 15:26 Drug: Zofran (Ondansetron) 4 mg Route: IVP; Site: left jugular; ca1 16:00 Follow up: Response: No adverse reaction; Nausea is decreased ca1 15:30 Drug: fentaNYL (PF) 25 mcg {Note: rass 0.} Route: IVP; Site: left antecubital; ca1 16:15 Follow up: Response: No adverse reaction; Pain is decreased; RASS: Alert and Calm (0) ca1 15:36 Drug: NS 0.9% 1000 ml Route: IV; Rate: 1 bolus; Site: left jugular; ca1 16:30 Follow up: Response: No adverse reaction; IV Status: Completed infusion; IV Intake: ca1 1000ml 15:48 Drug: Zosyn 3.375 grams Route: IVPB; Infused Over: 60 mins; Site: left jugular; ca1 17:00 Follow up: Response: No adverse reaction; IV Status: Completed infusion; IV Intake: ca1 100ml 16:39 Not Given (Duplicate Order): NS 0.9% 1000 ml IV at 1 bolus Per protocol; 1000 mL bolus phillip 16:56 Not Given (Duplicate Order): NS 0.9% 1000 ml IV at 100 ml/hr continuous phillip 17:00 Drug: D50W 50 ml Route: IVP; Site: left jugular; ca1 18:00 Follow up: Response: No adverse reaction ca1 17:45 Drug: D5W 1000 ml, Sodium Bicarbonate 150 mEq Route: IV; Rate: 100 ml/hr; Site: left ca1 jugular; 18:30 Follow up: Response: No adverse reaction; IV Status: Infusion continued upon transfer ca1 17:56 Drug: NS 0.9% 500 ml Route: IV; Rate: bolus; Site: left jugular; ca1 18:30 Follow up: Response: No adverse reaction; IV Status: Completed infusion; IV Intake: ca1 500ml 17:57 Drug: fentaNYL (PF) 25 mcg {Note: rass 1.} Route: IVP; Site: left jugular; ca1 19:00 Follow up: Response: No adverse reaction; Pain is decreased; RASS: Alert and Calm (0) ca1 Intake: 16:30 IV: 1000ml; Total: 1000ml. ca1 17:00 IV: 100ml; Total: 1100ml. ca1 18:30 IV: 500ml; Total: 1600ml. ca1 Output: 18:43 Urine: 40ml (Forrester); Total: 40ml. ca1 Outcome: 17:17 ER care complete, transfer ordered by MD. fisher 19:33 Transferred by ground EMS to [facility], Transfer form completed. ca1 X-rays sent w/ patient. 19:33 Condition: stable 19:33 Instructed on the need for transfer. 19:33 Patient left the ED. ca1 Signatures: Dispatcher [employer] EDMS Piedad Ch Stephanie, RN RN sv Anderson, Corey, MD MD cha Martinez, Eric em1 Dunia Do rg4 Corry Das RN RN ca1 Corrections: (The following items were deleted from the chart) 14:05 14:00 Chief complaint: Spouse and/or significant other states: lower abd pain, small sv amount of vaginal bleeding, low back pain started 07/03/20. Reports "It's kind of stopped now." BM today. sv 14:05 14:00 Acuity: BASILIA 3 sv sv 14:05 14:02 Pulse 86bpm; Resp 16bpm; Pulse Ox 99% RA; Temp 97.4F Temporal; 72.57 kg; Height 5 sv ft. 2 in.; BMI: 29.2; sv 18:27 18:24 In radiology for Transvaginal Study (Probe)+US.RAD.BRZ. EDMS EDMS
--- NOTE | 2020-07-12 17:18 | EDPHYS ---
Physician Documentation [facility] Name: Syeda Loredo Age: 64 yrs Sex: Female : 1955 Arrival Date: 07/12/2020 Time: 13:40 Bed 20 Private MD: AYLA Physician Christian Dixon HPI: 07/12 14:38 This 64 yrs old Female presents to ER via Wheelchair with complaints of phillip Abdominal Pain, Back Pain. 14:38 The patient presents with pain that is acute. phillip Historical: - Allergies: 14:02 No Known Allergies; sv - PMHx: 14:02 Hyperlipidemia; Hypertension; Hypothyroidism; sv - PSHx: 14:02 None; sv - Immunization history:: Adult Immunizations up to date, Flu vaccine is up to date. - Social history:: Smoking status: Patient denies any tobacco usage or history of. - Family history:: pertinent for. ROS: 14:39 Constitutional: Negative for fever, chills, and weight loss, Eyes: Negative for injury, phillip pain, redness, and discharge, ENT: Negative for injury, pain, and discharge, Neck: Negative for injury, pain, and swelling, Cardiovascular: Negative for chest pain, palpitations, and edema, Respiratory: Negative for shortness of breath, cough, wheezing, and pleuritic chest pain, Back: Negative for injury and pain, : Negative for injury, bleeding, discharge, and swelling, MS/Extremity: Negative for injury and deformity, Neuro: Negative for headache, weakness, numbness, tingling, and seizure, Psych: Negative for depression, anxiety, suicide ideation, homicidal ideation, and hallucinations, Allergy/Immunology: Negative for hives, rash, and allergies, Endocrine: Negative for neck swelling, polydipsia, polyuria, polyphagia, and marked weight changes. 14:39 Abdomen/GI: Positive for abdominal pain, abdominal cramps, abdominal distension, of the right lower quadrant and left lower quadrant. 14:39 Skin: Positive for pallor. Exam: 14:39 Constitutional: This is a well developed, well nourished patient who is awake, alert, phillip and in no acute distress. Head/Face: Normocephalic, atraumatic. Eyes: Pupils equal round and reactive to light, extra-ocular motions intact. Lids and lashes normal. Conjunctiva and sclera are non-icteric and not injected. Cornea within normal limits. Periorbital areas with no swelling, redness, or edema. ENT: Nares patent. No nasal discharge, no septal abnormalities noted. Tympanic membranes are normal and external auditory canals are clear. Oropharynx with no redness, swelling, or masses, exudates, or evidence of obstruction, uvula midline. Mucous membranes moist. Neck: Trachea midline, no thyromegaly or masses palpated, and no cervical lymphadenopathy. Supple, full range of motion without nuchal rigidity, or vertebral point tenderness. No Meningismus. Chest/axilla: Normal chest wall appearance and motion. Nontender with no deformity. No lesions are appreciated. Cardiovascular: Regular rate and rhythm with a normal S1 and S2. No gallops, murmurs, or rubs. Normal PMI, no JVD. No pulse deficits. Respiratory: Lungs have equal breath sounds bilaterally, clear to auscultation and percussion. No rales, rhonchi or wheezes noted. No increased work of breathing, no retractions or nasal flaring. Back: No spinal tenderness. No costovertebral tenderness. Full range of motion. MS/ Extremity: Pulses equal, no cyanosis. Neurovascular intact. Full, normal range of motion. Neuro: Awake and alert, GCS 15, oriented to person, place, time, and situation. Cranial nerves II-XII grossly intact. Motor strength 5/5 in all extremities. Sensory grossly intact. Cerebellar exam normal. Normal gait. Psych: Awake, alert, with orientation to person, place and time. Behavior, mood, and affect are within normal limits. 14:39 Abdomen/GI: Inspection: distension, Bowel sounds: normal, Palpation: moderate abdominal tenderness, in the suprapubic area, right lower quadrant and left lower quadrant, Liver: no appreciated palpable abnormalities, Hernia: not appreciated. 14:39 Skin: Appearance: Color: pale, Temperature: normal temperature, Moisture: normal moisture, petechiae, not noted, ecchymosis, not noted, flushing, not noted, abscess, not appreciated, cellulitis, is not appreciated, induration, is not appreciated. 14:43 ECG was reviewed by the Attending Physician. [facility] Vital Signs: 14:02 BP 82 / 39; Pulse 86; Resp 16; Temp 97.4(TE); Pulse Ox 99% on R/A; Weight 72.57 kg; sv Height 5 ft. 2 in. (157.48 cm); 14:35 BP 102 / 51; Pulse 87; Resp 16 S; Pulse Ox 94% ; ca1 15:32 BP 97 / 44; Pulse 92; Resp 16 S; Pulse Ox 98% on R/A; ca1 16:15 BP 98 / 41; Pulse 92; Resp 22; Pulse Ox 95% on R/A; ca1 17:00 BP 100 / 48; Pulse 99; Resp 17 S; Pulse Ox 94% on R/A; ca1 17:43 BP 104 / 44; Pulse 105; Resp 20; Pulse Ox 93% on R/A; ca1 18:11 BP 94 / 42; Pulse 89; Resp 20; Pulse Ox 94% on R/A; ca1 18:44 BP 105 / 48; Pulse 103; Resp 20 S; Pulse Ox 95% on R/A; ca1 14:02 Body Mass Index 29.26 (72.57 kg, 157.48 cm) sv Procedures: 15:34 Peripheral line: by aseptic technique a peripheral line was placed in the left external phillip jugular vein. MDM: 14:23 Patient medically screened. phillip 14:41 Differential diagnosis: Abdominal Aortic Aneurysm Cholelithiasis Hydronephrosis Leaking phillip Aortic Aneurysm Metastatic Disease Obesity Peptic Ulcer Pyelonephritis AAA, diverticulitis, pancreatitis, Peptic Ulcer Disease, urinary tract infection. Data reviewed: vital signs, nurses notes, lab test result(s), EKG, radiologic studies, CT scan, plain films. Data interpreted: patient monitor: rate is 87 beats/min, rhythm is regular, Pulse oximetry: on is 94 %. Test interpretation: by ED physician or midlevel provider: ECG, plain radiologic studies. Counseling: I had a detailed discussion with the patient and/or guardian regarding: the historical points, exam findings, and any diagnostic results supporting the discharge/admit diagnosis, lab results. 07/12 14:36 Order name: Basic Metabolic Panel; Complete Time: 16:37 [facility] 07/12 14:36 Order name: CBC with Diff; Complete Time: 16:03 [facility] 07/12 14:36 Order name: LFT's; Complete Time: 16:37 [facility] 07/12 14:36 Order name: Magnesium; Complete Time: 16:37 [facility] 07/12 14:36 Order name: NT PRO-BNP; Complete Time: 16:37 phillip 07/12 14:36 Order name: PT-INR; Complete Time: 16:03 phillip 07/12 14:36 Order name: Troponin (emerg Dept Use Only); Complete Time: 16:37 phillip 07/12 14:36 Order name: Lipase; Complete Time: 16:37 phillip 07/12 14:36 Order name: Type And Screen; Complete Time: 16:57 phillip 07/12 16:19 Order name: ABG; Complete Time: 17:20 phillip 07/12 16:39 Order name: Urine Osmolality; Complete Time: 19:45 phillip 07/12 16:39 Order name: Urine Sodium Random; Complete Time: 19:45 phillip 07/12 16:39 Order name: Osmolality, Serum; Complete Time: 18:54 phillip 07/12 17:50 Order name: ABO/RH no charge; Complete Time: 18:23 EDMS 07/12 14:36 Order name: XRAY Chest (1 view); Complete Time: 16:57 phillip 07/12 16:18 Order name: Chest Abd Pelvis Wo Con; Complete Time: 16:57 EDSD 07/12 17:13 Order name: US Abdomen Limited; Complete Time: 19:45 07/12 18:27 Order name: Pelvis Complete; Complete Time: 19:45 EDSD 07/12 18:30 Order name: Urine Dipstick--Ancillary (enter results) 07/12 14:36 Order name: EKG; Complete Time: 14:37 phillip 07/12 14:36 Order name: Cardiac monitoring; Complete Time: 14:40 phillip 07/12 14:36 Order name: EKG - Nurse/Tech; Complete Time: 14:40 phillip 07/12 14:36 Order name: IV Saline Lock; Complete Time: 15:33 phillip 07/12 14:36 Order name: Labs collected and sent; Complete Time: 15:33 phillip 07/12 14:36 Order name: O2 Per Protocol; Complete Time: 14:40 phillip 07/12 14:36 Order name: O2 Sat Monitoring; Complete Time: 14:40 07/12 14:36 Order name: Urine Dipstick-Ancillary (obtain specimen); Complete Time: 18:55 phillip 07/12 14:36 Order name: IV Saline Lock - Large Bore; Complete Time: 15:34 phillip 07/12 15:33 Order name: Labs - recollect needed: T\T\S; Complete Time: 15:34 sv 07/12 16:14 Order name: Labs - recollect needed: collect abo/rh no charge; Complete Time: 16:18 bd 07/12 16:39 Order name: Mitzy; Complete Time: 18:54 phillip EC:43 Rate is 90 beats/min. Rhythm is regular. QRS Jasper is Normal. SC interval is normal. QRS phillip interval is normal. QT interval is prolonged at 511 msec. No Q waves. T waves are Normal. No ST changes noted. Clinical impression: NSR w/ Non-specific ST/T Changes and No evidence of ischemia. Interpreted by me. Reviewed by me. Administered Medications: 15:24 Drug: ProTONIX 40 mg Route: IVP; Site: left jugular; ca1 16:00 Follow up: Response: No adverse reaction ca1 15:26 Drug: Zofran (Ondansetron) 4 mg Route: IVP; Site: left jugular; ca1 16:00 Follow up: Response: No adverse reaction; Nausea is decreased ca1 15:30 Drug: fentaNYL (PF) 25 mcg {Note: rass 0.} Route: IVP; Site: left antecubital; ca1 16:15 Follow up: Response: No adverse reaction; Pain is decreased; RASS: Alert and Calm (0) ca1 15:36 Drug: NS 0.9% 1000 ml Route: IV; Rate: 1 bolus; Site: left jugular; ca1 16:30 Follow up: Response: No adverse reaction; IV Status: Completed infusion; IV Intake: ca1 1000ml 15:48 Drug: Zosyn 3.375 grams Route: IVPB; Infused Over: 60 mins; Site: left jugular; ca1 17:00 Follow up: Response: No adverse reaction; IV Status: Completed infusion; IV Intake: ca1 100ml 16:39 Not Given (Duplicate Order): NS 0.9% 1000 ml IV at 1 bolus Per protocol; 1000 mL bolus phillip 16:56 Not Given (Duplicate Order): NS 0.9% 1000 ml IV at 100 ml/hr continuous phillip 17:00 Drug: D50W 50 ml Route: IVP; Site: left jugular; ca1 18:00 Follow up: Response: No adverse reaction ca1 17:45 Drug: D5W 1000 ml, Sodium Bicarbonate 150 mEq Route: IV; Rate: 100 ml/hr; Site: left ca1 jugular; 18:30 Follow up: Response: No adverse reaction; IV Status: Infusion continued upon transfer ca1 17:56 Drug: NS 0.9% 500 ml Route: IV; Rate: bolus; Site: left jugular; ca1 18:30 Follow up: Response: No adverse reaction; IV Status: Completed infusion; IV Intake: ca1 500ml 17:57 Drug: fentaNYL (PF) 25 mcg {Note: rass 1.} Route: IVP; Site: left jugular; ca1 19:00 Follow up: Response: No adverse reaction; Pain is decreased; RASS: Alert and Calm (0) ca1 Disposition: 07/12/20 17:17 Transfer ordered to Other Acute Care Facility. Diagnosis are Acute kidney failure, Hypo-osmolality and hyponatremia, Acute pancreatitis, Abdominal tenderness, Hypoglycemia, unspecified, Elevated white blood cell count, Pelvic and perineal pain - bilateral pelvic masses7.1 and 4.2 cm, Abnormal findings on diagnostic imaging of other body structures - innumerable pulmonary nodules, moderate hilar and mediastinal lymphademopathy. - Reason for transfer: Higher level of care. - Accepting physician is to [facility] acute bed. - Condition is Fair. - Problem is new. - Symptoms have improved. Signatures: Dispatcher [employer] EDMS Piedad Ch Stephanie, RN RN Christian Putnam MD MD cha Acob, Cheryl, RN RN ca1 Corrections: (The following items were deleted from the chart) 16:18 14:38 Abdomen Pelvis W Con+CT.RAD.BRZ ordered. EDSD EDMS 18:27 16:43 Transvaginal Study (Probe)+US.RAD.BRZ ordered. EDSD EDMS 19:33 17:17 07/12/2020 17:17 Transfer ordered to Other Acute Care Facility. Diagnosis is ca1 Acute kidney failure; Hypo-osmolality and hyponatremia; Acute pancreatitis; Abdominal tenderness; Hypoglycemia, unspecified; Elevated white blood cell count; Pelvic and perineal pain - bilateral pelvic masses7.1 and 4.2 cm; Abnormal findings on diagnostic imaging of other body structures - innumerable pulmonary nodules, moderate hilar and mediastinal lymphademopathy. Reason for transfer: Higher level of care. Accepting physician is to tele acute bed. Condition is Fair. Problem is new. Symptoms have improved. phillip
[2020-07-12] MEDS ORDERED: D50W 50 ML IV ONE (17:23)
[2020-07-12] MEDS ORDERED: D5W 1,000 ML with NA BICARB 8.4% 150 MEQ IV SCH ×2 (18:00)
--- NOTE | 2020-07-12 19:01 | RAD REPORT ---
EXAM DESCRIPTION: US - Abdomen Exam Limited - 07/12/2020 6:27 pm CLINICAL HISTORY: Abdominal pain. COMPARISON: None. FINDINGS: The gallbladder wall is mildly thickened. A gallstone is not seen. The biliary tree is normal caliber. IMPRESSION: Mildly thickened gallbladder wall may be secondary to hypoalbuminemia or acalculous chol ecystitis
--- NOTE | 2020-07-12 19:05 | RAD REPORT ---
EXAM DESCRIPTION: US - Pelvis Complete - 07/12/2020 6:26 pm CLINICAL HISTORY: Pelvic mass COMPARISON: CT July 12, 2020 FINDINGS: Limited examination as the bladder is poorly distended. The patient refused an endovaginal sonogram. The uterus measures 11 x 8 x 7 centimeters. The endometrial stripe is poorly visualized. Echotexture of the uterus is poorly seen. Evaluation of the right adnexae and right ovary limited. The patient's known right adnexal mass was n ot visualized secondary to technical factors. 3.7 centimeter hypoechoic mass left adnexal. Left ovary not clearly seen No significant free fluid IMPRESSION: Limited examination 3.7 centimeter hypoechoic left adnexal mass. This could represent an ovarian cyst or cystadenoma. Patient's known large right adnexal mass was not visualized secondary to technical factors If the patient can tolerate an MRI this may helpful for further evaluation
[2020-07-12 19:55] LABS: Urine Blood 2+ (NEG); Urine Glucose NEGATIVE (NEG); Urine Protein 2+ (NEG); Urine Specific Gravity 1.025 (1.005-1.030)
[2020-07-12 20:53] VITALS: TEMP 97.4
[2020-07-12 21:06] VITALS: BP 105/48; O2SAT 95
--- NOTE | 2020-07-13 08:18 | EKG ---
Test Date: 2020-07-12 Test Time: 14:38:54 Sign Language Translator: MAURIZIO MEASUREMENT RESULTS: Intervals: Rate: 90 DE: 156 QRSD: 76 QT: 418 QTc: 511 [place]: P: 69 DE: 156 QRS: 26 T: 46 INTERPRETIVE STATEMENTS: Normal sinus rhythm Prolonged QT Abnormal ECG Compared to ECG 04/09/2020 08:51:10 Prolonged QT interval now present T-wave abnormality no longer present Electronically Signed On 07-13-20 08:17:28 INDUSTRIAL TECH INSTRUCTOR by Roberto Carlos Tai
== END 2020-07-12 19:33 ==
LOC: ER 13:39
PROC: 05HQ33Z Insertion of Infusion Device into Left External Jugular Vein, Percutaneous Approach (ICD-10-PCS; principal; 2020-07-12)
DX: N17.9 Acute kidney failure, unspecified (principal); E87.1 Hypo-osmolality and hyponatremia; K85.90 Acute pancreatitis without necrosis or infection, unspecified; E16.2 Hypoglycemia, unspecified; D72.829 Elevated white blood cell count, unspecified; R19.00 Intra-abdominal and pelvic swelling, mass and lump, unspecified site; R91.8 Other nonspecific abnormal finding of lung field; R59.0 Localized enlarged lymph nodes; I10 Essential (primary) hypertension
CPT/HCPCS: 93005; 85025; 80048; 36415; 86900; 83735; 86850; 85610; 84300; 86901; 80076; 81003; 84484; 83690; 83880; 83930; 83935; 71250; 74176; 71045; 76705; 76856; 82805; 51702; 99285; 36569; C9113; J3010 ×2; J2543; J7030 ×2; J2405